=== PATIENT | male | born 1995 | race African-American/Black ===

== ENCOUNTER 2017-07-13 17:05 | Emergency (ER) | payer SELFPAY ==
[2017-07-13] MEDS ORDERED: Lorazepam 2 MG/ML VIAL ONE (17:31)
[2017-07-13] MEDS ORDERED: Ondansetron ODT 4 MG TAB ONE (17:32)
[2017-07-13 18:01] LABS: Amphetamine Not Detected (NotDetected); Barbiturates Screen Not Detected (NotDetected); Benzodiazepine Screen Not Detected (NotDetected); Cocaine Metabolite Screen Not Detected (NotDetected); Medtox Control Line Valid? VALID (VALID); Methadone Not Detected (NotDetected); Methamphetamine Not Detected (NotDetected); Opiate Screen Not Detected (NotDetected); Oxycodone Screen Not Detected (NotDetected); Phencyclidine (PCP) Not Detected (NotDetected); THC/Cannabinoid Screen Detected (NotDetected); Tricyclic Screen Not Detected (NotDetected)
[2017-07-13] MEDS ORDERED: Promethazine HCl 25 MG/ML VIAL ONE (18:28)
[2017-07-13 19:02] LABS: Anion Gap 18 mmol/L (10-20); BUN (Urea Nitrogen) 12 mg/dL (8.9-20.6); Calc. Creatinine Clearance 0 mL/min (70-130); Calcium 10.2 mg/dL (7.8-10.44); Carbon Dioxide 22 mmol/L (22-29); Chloride 105 mmol/L (98-107); Estimated GFR-MDRD 84; Glucose 92 mg/dL (70-105); Hemoglobin 17.1 g/dL (14.0-18.0); Lymphocytes 2 % (28-48); MDiff Complete? YES; Magnesium 2.3 mg/dL (1.7-2.2); Mean Corpuscular Hemoglobin 29.3 pg (25.0-35.0); Mean Corpuscular Volume 91.7 fl (77.0-87.0); Monocytes 5 % (0-4); Neutrophil 92 % (31-61); PLT Morphology Comment Appears Adequate; Platelet Count 259 thou/uL (130-400); Potassium 3.3 mmol/L (3.5-5.1); RBC Distribution Width 12.1 % (11.5-14.5); RBC Morphology Normal; Reactive Lymphocytes 1 % (0-10); Red Blood Cell (RBC) Count 5.85 mill/uL (4.00-5.20); Sodium 142 mmol/L (136-145); White Blood Cell (WBC) Count 23.5 thou/uL (4.8-10.8)
--- NOTE | 2017-07-13 19:19 | CT ---
CT HEAD NONCONTRAST 07/13/17 HISTORY: Headache. FINDINGS: No comparison. There is no evidence of acute intracranial hemorrhage or infarct. The ventricles appea r normal in size, shape, and position. There is no mass effect or shift of midline structures. The vi sualized paranasal sinuses remain well aerated. IMPRESSION: No acute intracranial abnormalities are demonstrated on noncontrast CT head. POS: [facility]
== END 2017-07-13 19:29 | disposition home or self-care (01) ==
LOC: MADERS 17:05
DX: R56.9 Unspecified convulsions (principal)
CPT/HCPCS: 36416; 70450; 80048; 80306; 83735; 85025; 96372; 36415-59; J2060; J2550; Q0162

== ENCOUNTER 2017-08-15 11:41 | Emergency (ER) | payer SELFPAY | END 2017-08-15 17:48 | disposition home or self-care (01) | LOC: MADERS 11:41 | DX: Z76.0 Encounter for issue of repeat prescription (principal); R56.9 Unspecified convulsions; Z79.899 Other long term (current) drug therapy | CPT/HCPCS: 99281 ==

== ENCOUNTER → 2018-09-30 | Emergency (ER) | payer SELFPAY ==
[~2018-09-30] MED LIST: Lidocaine 1% 20 ML MDV ONE; Sodium Chloride 0.9% 1,000 ML ONE; Ziprasidone 20 MG VIAL ONE
[2018-09-30 21:29] LABS: #Basophils 0.1 thou/uL (0.0-0.2); #Eosinphils 0.1 thou/uL (0.0-0.7); #Lymphocytes 1.8 thou/uL (1.20-3.40); #Monocytes 0.9 thou/uL (0.11-0.59); #Neutrophils 9.3 thou/uL (1.40-6.50); %Basophils 0.8 % (0.0-1.0); %Eosinophils 0.6 % (0.0-10.0); %Lymphocytes 14.8 % (21.0-51.0); %Monocytes 7.6 % (0.0-10.0); %Neutrophils 76.2 % (42.0-75.0); Hemoglobin 15.9 g/dL (14.0-18.0); Mean Corpuscular Hemoglobin 28.6 pg (27.0-31.0); Mean Corpuscular Volume 92.3 fL (78.0-98.0); Mean Platelet Volume 7.4 fL (7.4-10.4); Platelet Count 273 thou/uL (130-400); Red Blood Cell (RBC) Count 5.57 mill/uL (4.70-6.10); White Blood Cell (WBC) Count 12.1 thou/uL (4.8-10.8)
[2018-09-30 21:37] LABS: Bilirubin Negative (Negative); Blood, Urine Negative (Negative); Clarity Clear (Clear); Glucose, Urine (Dipstick) Negative (Negative); Leukocyte Negative (Negative); Nitrite Negative (Negative); Protein, Urine (Dipstick) Negative (Neg-Trace); Specific Gravity, Urine 1.025 (1.005-1.030)
[2018-09-30 21:42] LABS: Amphetamine Not Detected (NotDetected); Barbiturates Screen Not Detected (NotDetected); Benzodiazepine Screen Not Detected (NotDetected); Cocaine Metabolite Screen Not Detected (NotDetected); Medtox Control Line Valid? VALID (VALID); Methadone Not Detected (NotDetected); Methamphetamine Not Detected (NotDetected); Opiate Screen Not Detected (NotDetected); Oxycodone Screen Not Detected (NotDetected); Phencyclidine (PCP) Not Detected (NotDetected); THC/Cannabinoid Screen Detected (NotDetected); Tricyclic Screen Not Detected (NotDetected)
[2018-09-30 21:51] LABS: ALT (SGPT) 17 U/L (8-55); AST (SGOT) 29 U/L (5-34); Acetaminophen Less than 6.0 mcg/mL (10.0-30.0); Albumin 4.7 g/dL (3.5-5.0); Alcohol Less than 10 mg/dL (Less than 10); Alkaline Phosphatase 76 U/L (40-150); Anion Gap 14 mmol/L (10-20); BUN (Urea Nitrogen) 21 mg/dL (8.9-20.6); Bilirubin, Total 0.6 mg/dL (0.2-1.2); Calc. Creatinine Clearance 0 mL/min (70-130); Calcium 9.7 mg/dL (7.8-10.44); Carbon Dioxide 27 mmol/L (22-29); Chloride 103 mmol/L (98-107); Estimated GFR-MDRD 71; Globulin 3.2 g/dL (2.4-3.5); Glucose 103 mg/dL (70-105); Protein, Total 7.9 g/dL (6.0-8.3); Salicylate Less than 8.0 mg/dL (15.0-30.0); Sodium 140 mmol/L (136-145)
[2018-09-30 23:54] LABS: Anion Gap 10 mmol/L (10-20)
[2018-10-01 00:18] LABS: BUN (Urea Nitrogen) 19 mg/dL (8.9-20.6); CK (CPK) 614 U/L (30-200); Calc. Creatinine Clearance 0 mL/min (70-130); Calcium 8.2 mg/dL (7.8-10.44); Carbon Dioxide 23 mmol/L (22-29); Chloride 110 mmol/L (98-107); Estimated GFR-MDRD Greater than 90; Glucose 88 mg/dL (70-105); Potassium 3.8 mmol/L (3.5-5.1); Sodium 139 mmol/L (136-145)
== END ==
LOC: MADERS 21:01
DX: F23 Brief psychotic disorder (principal); F12.10 Cannabis abuse, uncomplicated; M62.82 Rhabdomyolysis
CPT/HCPCS: 36415; 80053; 80306; 80307; 81003; 82550; 84443; 84484; 85025; 93005; 96360; 96361; 96372; J2001; J3486; J7050